=== PATIENT | male | born 1995 | race Caucasian/White ===

== ENCOUNTER 2017-03-04 17:32 | Emergency (ER) | payer BC | END 2017-03-04 20:19 | disposition home or self-care (01) | LOC: ER1 17:32 | DX: M79.672 Pain in left foot (principal); B07.0 Plantar wart | CPT/HCPCS: 73630; 99283 ==

== ENCOUNTER 2021-03-01 07:39 | Emergency (ER) | payer BC, OTHER ==
[~2021-03-01 07:39] MED LIST: ANUCORT-HC25 MG PR; APRISO0.375 GM PO; BACTRIM DS TAB1 EACH PO; LOPERAMIDE2 M1 PO; SUBOXONE 8 MG-1 EACH SL; ZOFRAN4 MG PO
== END 2021-03-01 08:40 | disposition home or self-care (01) ==
LOC: ER1 07:39
DX: N62 Hypertrophy of breast (principal); J45.909 Unspecified asthma, uncomplicated; Z88.8 Allergy status to other drugs, medicaments and biological substances
CPT/HCPCS: 99283

== ENCOUNTER → 2021-04-12 | Outpatient (CLI) | payer BC, OTHER | LOC: US 10:00 | DX: N63.20 Unspecified lump in the left breast, unspecified quadrant (principal) | CPT/HCPCS: 76641-LT ==

== ENCOUNTER 2021-12-28 16:20 | Emergency (ER) | payer BC ==
[2021-12-28 17:30] LABS: HEMOGLOBIN 14.4 gm/dl (14.0-17.5); RED BLOOD COUNT 4.73 M/UL (4.20-5.50); WHITE BLOOD COUNT 8.7 K/UL (4.5-11.0)
[2021-12-28 17:53] LABS: BUN/CREATININE RATIO 10 (0-10)
== END 2021-12-28 22:15 | disposition short-term general hospital (02) ==
LOC: ER1 16:20
PROVIDERS: Physician Assistant
DX: K51.90 Ulcerative colitis, unspecified, without complications (principal); K85.90 Acute pancreatitis without necrosis or infection, unspecified; Z20.822 Contact with and (suspected) exposure to COVID-19
CPT/HCPCS: 80053; 81001; 82272; 83690; 83735; 84478; 85025; 96365; 96375; 99285; G0480; J2270; J2405; Q9967; U0002